=== PATIENT | male | born 1960 | race Caucasian/White ===

== ENCOUNTER 2019-05-10 19:58 | Emergency (ER) | payer OTHER, MEDICAID ==
[2019-05-10 20:26] LABS: ADD MAN DIFF? NO
[2019-05-10 20:28] LABS: BASOPHILS % 0.4 % (0.0-2.0); EOSINOPHILS % 0.8 % (0.0-7.0); HEMATOCRIT 38.8 % (42.0-52.0); HEMOGLOBIN 12.2 g/dl (14.0-18.0); LYMPHOCYTES # 0.7 10^3/ul (0.8-2.9); LYMPHOCYTES % 27.6 % (15.0-51.0); MEAN CORPUSCULAR HEMOGLOBIN 28.6 pg (29.0-33.0); MEAN CORPUSCULAR HGB CONC 31.4 g/dl (32.0-37.0); MEAN CORPUSCULAR VOLUME 91.1 fl (82.0-101.0); MEAN PLATELET VOLUME 9.3 fl (7.4-10.4); MONOCYTES % 1.6 % (0.0-11.0); NEUTROPHIL # 1.6 10^3/ul (1.6-7.5); NEUTROPHILS % 66.7 % (39.0-77.0); PLATELET COUNT 282 10^3/UL (140-415); RED BLOOD COUNT 4.26 10^6/ul (4.70-6.10); RED CELL DISTRIBUTION WIDTH 13.9 % (11.5-14.5)
[2019-05-10 20:28] LABS: WHITE BLOOD COUNT 2.4 10^3/ul (4.8-10.8)
[2019-05-10 20:37] LABS: ALANINE AMINOTRANSFERASE 14 IU/L (13-69); ALBUMIN 4.1 g/dl (3.3-4.9); ALKALINE PHOSPHATASE 83 IU/L (42-121); ANION GAP 9 (5-13); ASPARTATE AMINO TRANSFERASE 26 IU/L (15-46); BILIRUBIN,INDIRECT 0.3 mg/dl (0-1.1); BILIRUBIN,TOTAL 0.3 mg/dl (0.2-1.3); BLOOD UREA NITROGEN 23 mg/dl (7-20); CALCIUM 8.8 mg/dl (8.4-10.2); CARBON DIOXIDE 28 mmol/L (21-31); CHLORIDE 103 mmol/L (97-110); CREATININE 0.76 mg/dl (0.61-1.24); Estimated GFR > 60 mL/min (>60); GLUCOSE 93 mg/dl (70-220); LIPASE 26 U/L (23-300); POTASSIUM 4.1 mmol/L (3.5-5.1); SODIUM 140 mmol/L (135-144); TOTAL PROTEIN 8.2 g/dl (6.1-8.1)
[2019-05-10] MEDS: KETOROLAC 30 MG INJ IM (20:39)
[2019-05-10] MEDS: ONDANSETRON 4 MG INJ IM (20:39)
[2019-05-10] MEDS: BELLADONNA/PHENOBARBITAL TAB PO (20:40)
[2019-05-10] MEDS: LIDOCAINE/MYLANTA 40 ML BTL PO (20:40)
[2019-05-10 20:48] LABS: TROPONIN-I < 0.012 ng/ml (0.000-0.120)
[2019-05-10 21:27] LABS: ETHANOL < 10.0 mg/dl (0-0)
[2019-05-11 02:43] LABS: TROPONIN-I < 0.012 ng/ml (0.000-0.120)
[2019-05-11] MEDS: ACETAMINOPHEN 325 MG TAB PO (10:56)
== END 2019-05-11 11:11 | disposition home or self-care (01) ==
LOC: E/R 19:58
DX: R07.89 Other chest pain (principal); F11.10 Opioid abuse, uncomplicated
CPT/HCPCS: 36415; 71045; 80053; 80307; 83690; 84484; 85025; 93005; 96372; 99285-25